=== PATIENT | female | born 1980 | race Two or more races ===

== ENCOUNTER 2021-12-31 02:18 | Emergency (ER) | payer OTHER ==
[~2021-12-31] VITALS: Ht 165.1 cm; Wt 81.6 kg
[2021-12-31 02:18] VITALS: BP 137/73
== END 2021-12-31 15:53 | disposition left against medical advice (07) ==
LOC: ER 02:18
DX: R10.13 Epigastric pain (principal); Z53.21 Procedure and treatment not carried out due to patient leaving prior to being seen by health care provider